=== PATIENT | female | born 1970 | race Caucasian/White ===

== ENCOUNTER 2018-07-04 13:58 | Emergency (ER) | payer OTHER, MEDICAID | END 2018-07-04 16:42 | disposition home or self-care (01) | LOC: ED 13:58 ==

== ENCOUNTER 2019-11-06 16:34 | Emergency (ER) | payer OTHER ==
[~2019-11-06] VITALS: Ht 152.4 cm; Wt 152.9 kg
[~2019-11-06 16:34] MED LIST: ALDACTONE25 MG PO; ASPIR 8181 MG PO; ASPIRIN CHILDRE81 MG PO; ATORVASTATIN CA40 M1 PO; AZOR 10-20 MG1 EACH PO; FORTAMET500 M1 PO; HYDRALAZINE HC100 MG PO; HYDRALAZINE HCL10 MG PO; HYDROXYZINE50 M1 PO; ISOSORBIDE DINI30 M2 PO; KEN10; LASIX20 MG PO; MEDDP PO; MELATONIN3 MG PO; METOPROLOL SUC200 M2 PO; MOBIC15 MG PO; PROAIR RES117 MCG/Ac INH; RANITIDINE150 M1 PO; SINGULAIR10 MG PO; SYMBICORT1 AE3 IH; TOPROL XL100 MG PO; TORSEMIDE10 MG PO; VENTOLIN H0.09 MG/A1 IH; ZESTRIL20 MG PO; ZESTRIL40 MG PO; ZITHROMAX500 MG PO
[2019-11-06 16:47] VITALS: Ht 152.4 cm; Wt 152.9 kg
[2019-11-06 18:54] VITALS: BP 144/65
== END 2019-11-06 18:54 | disposition home or self-care (01) ==
LOC: ED 16:34
DX: S46.911A Strain of unspecified muscle, fascia and tendon at shoulder and upper arm level, right arm, initial encounter (principal); S80.01XA Contusion of right knee, initial encounter; I11.0 Hypertensive heart disease with heart failure; I50.9 Heart failure, unspecified; E66.2 Morbid (severe) obesity with alveolar hypoventilation; J45.909 Unspecified asthma, uncomplicated; Z87.19 Personal history of other diseases of the digestive system; Z98.51 Tubal ligation status; Z90.89 Acquired absence of other organs; Z88.1 Allergy status to other antibiotic agents; W06.XXXA Fall from bed, initial encounter; Y93.89 Activity, other specified; Y92.89 Other specified places as the place of occurrence of the external cause; Y99.8 Other external cause status
CPT/HCPCS: J1885; Q0092